=== PATIENT | male | born 1985 | race Caucasian/White ===

== ENCOUNTER 2016-08-11 18:37 | Emergency (ER) | payer BC, OTHER ==
[2016-08-11] MEDS ORDERED: HYDROmorphone 1 MG INJECTION IV ONE (18:46)
[2016-08-11] MEDS ORDERED: ONDANSETRON HCL 4 MG/2 ML VIAL IV ONE (18:46)
[2016-08-11 18:49] VITALS: TEMP 97.8; BMI 31.4
--- NOTE | 2016-08-11 19:22 | EDPRACDOC ---
- General Information Chief Complaint: Male Urogenital Problems Stated Complaint: TESTICULAR PAIN Time Seen by Provider: 08/11/16 18:45 Information Source: Patient Home Medications: Home Medications Fexofenadine HCl [Valentina] 180 mg PO QHS PRN 08/11/16 Hydrocodone Bit/Acetaminophen [Wellington 5-325 Tablet] 1 each PO Q4H #20 tab Ibuprofen 800 mg PO DAILY PRN 08/11/16 Meloxicam [Mobic] 7.5 mg PO BID #20 tab 08/11/16 Allergies/Adverse Reactions: Allergies Allergy/AdvReac Type Severity Reaction Status Date / Time No Known Allergies Allergy Verified 08/11/16 18:43 - History of Present Illness Onset: 8 days HPI: PT PRESENTS TODAY WITH INCREASINGLY WORSENING RIGHT TESTICLE PAIN X 1 WEEK. MODERATELY ASSOCIATED RLQ ABD PAIN. DENIES FEVER, DYSURIA, DISCHARGE. SEXUALLY ACTIVE, NO PROTECTION, NO NEW PARTNERS. NO PERTINENT PMH/MEDS/ SURGERIES. PT IN APPARENT PAIN. Symptom Onset: Reports: Gradual Urinary Output: Normal Penile Discharge: Reports: Normal Pain Severity: Severe Pain Quality: Reports: Sharp, Stabbing Pain Improves with: Reports: Nothing Relevent History of: Reports: Sexually Active Associated Signs & Symptoms: Reports: Abdominal Pain - Treatment Prior to ED Arrival Reported Medications/Treatment MEDICATION ADMINISTRATION PROFESSIONAL Treated With Medication MEDICATION ADMINISTRATION PROFESSIONAL YES Medications MEDICATION ADMINISTRATION PROFESSIONAL (Medication/ motrin, ice packs Dose/Time) ED Past Medical History - History Reviewed Yes Nurses notes reviewed and agree except as marked - Patient Medical History Psychological History: Denies: Depression Surgical History: Reports: Tonsillectomy/Adnoidectomy - Social Medical History Smoking Status: Current some day smoker EDM Review of Systems - Review of Systems ROS Negative Except as Marked: Yes All systems reviewed and were negative except as marked Constitutional: No Symptoms Reported Respiratory: No Symptoms Reported Cardiovascular: No Symptoms Reported Gastrointestinal: Pain Genitourinary: Testicular Pain Neurological: No Symptoms Reported Musculoskeletal: No Symptoms Reported Integumentary: No Symptoms Reported - Physical Exam Constitutional: Alert, Distress Oriented to: Time, Person, Place Last recorded Vital Signs: Last Vital Signs Temp 97.8 F 08/11/16 18:43 Pulse 74 08/11/16 19:12 Resp 18 08/11/16 19:12 BP 142/74 08/11/16 19:12 Pulse Ox 94 08/11/16 19:12 Oxygen Pulse Oxygen Saturation 94 O2 Device Room Air Oxygen Flow Rate Fraction of Inspired Oxygen ( FIO2) - HEENT Head: Normal Eye Exam: Normal Neck: Normal, Denies Pain, Midline - Respiratory/Cardiovascular Respiratory: Normal - CTA Cardiovascular: Normal - GI Auscultation: Normal Palpation: Normal Tenderness: Moderate, RLQ - Bladder: Normal Male Genitalia: Bilateral: Normal Scrotum: Bilateral: Normal - Musculoskeletal Back: Normal Extremities: Normal - Integumentary Skin: Normal Lymphatics: Normal - Neurologic Mood Description: Appropriate Thought: Coherent ED Penile Problem Exam - Genitals Penile Assessment: Normal Penile Discharge: Normal Glans: Normal Foreskin: Circumcised Shaft: Normal Scrotum: Bilateral: Normal Epididymis: Bilateral: Tender (ALSO NOTED SWELLING TO THE SPERMATIC CORD THAT IS ALSO SWOLLEN/FIRM/TENDER) Testicle: Bilateral: Tender - Results 08/11/16 18:43 08/11/16 18:43 Decision Time to Discharge: 20:46 - Departure Disposition: Home Condition: Stable Final Diagnosis: Epididymitis Instructions: Testicle Pain (ED) Education/Counseling Given To: Patient Education/Counseling Given Regarding: Diagnosis, Treatment, Follow Up Referrals: None,No Provider [Primary Care Provider] - One Week Jag Jacome MD [Staff Physician] - One Week Prescriptions: Hydrocodone Bit/Acetaminophen [Wellington 5-325 Tablet] 1 each PO Q4H #20 tab Meloxicam [Mobic] 7.5 mg PO BID #20 tab Additional Instructions: WEAR SUPPORTIVE UNDERWEAR. NO SEXUAL ACTIVITY FOR 10 DAYS. WE WILL CALL WITH ANY POSITIVE RESULTS. IF SYMPTOMS PERSIST/WORSEN, FOLLOW UP WITH PCP/UROLOGY, OR RETURN TO ED.
[2016-08-11 19:26] LABS: AUTOMATED BASOPHIL 0.7 % (0-2); AUTOMATED LYMPH 31.6 % (17-44); AUTOMATED MONOCYTE 11.7 % (3-10); MPV 7.7 fL (7.4-10.4)
[2016-08-11 19:46] LABS: BLOOD UREA NITROGEN 15 MG/DL (9-20); CALCIUM 9.6 MG/DL (8.4-10.2); CALCULATED OSMOLALITY 274 MOs/Kg (270-290); CHLORIDE 105 mEq/L (98-107); GLUCOSE 92 MG/DL (70-99); SODIUM LEVEL 142 mEq/L (137-146)
--- NOTE | 2016-08-11 20:27 | DIRPT ---
CLINICAL DATA: Right testicular swelling and pain for 4 days EXAM: SCROTAL ULTRASOUND DOPPLER ULTRASOUND OF THE TESTICLES TECHNIQUE: Complete ultrasound examination of the testicles, epididymis, and other scrotal structures was performed. Color and spectral Doppler ultrasound were also utilized to evaluate blood flow to the testicles. COMPARISON: None. FINDINGS: Right testicle Measurements: 4.5 x 2.7 x 3.3 cm. No mass or microlithiasis visualized. Left testicle Measurements: 4.3 x 2.6 x 2.9 cm. No mass or microlithiasis visualized. Right epididymis: Normal in size and appearance. Left epididymis: Normal in size and appearance. Hydrocele: None visualized. Varicocele: None visualized. Pulsed Doppler interrogation of both testes demonstrates normal low resistance arterial and venous waveforms bilaterally. IMPRESSION: No testicular abnormality. Small bilateral hydroceles. Electronically Signed By: Mingo Burns M.D. On: 08/11/2016 20:25
[2016-08-11] MEDS ORDERED: NS 1,000 ML IV ONE (20:37)
[2016-08-11] MEDS ORDERED: AZITHROMYCIN 250 MG TAB PO ONE (20:37)
[2016-08-11] MEDS ORDERED: CEFTRIAXONE 250 MG in D5W 100 ML IV ONE (20:37)
[2016-08-11 20:50] LABS: LEUKOCYTES/URINE NEG (NEGATIVE); NITRITE/URINE NEG (NEGATIVE); URINE OCCULT BLOOD NEG (NEG/TRACE)
[2016-08-11 21:10] LABS: RBC/URINE 0-2 (0-2)
[2016-08-11 21:50] VITALS: BP 140/87; PULSE 68
[2016-08-13 16:41] LABS: CHLAMY BY NUCLEIC ACID AMP Negative (Negative)
[2016-08-14 06:24] LABS: GC BY NUCLEIC ACID AMP Negative (Negative)
== END 2016-08-11 21:47 | disposition home or self-care (01) ==
LOC: ED 18:37
DX: N45.1 Epididymitis (principal)
CPT/HCPCS: 36415; 76870; 80053; 81001; 83605; 85025; 87491; 87591; 93975; 96365; 96375; 99284; J0696; J1170; J2405; J3490; J7060